=== PATIENT | male | born 1970 | race Caucasian/White ===

== ENCOUNTER → 2016-09-22 | Outpatient (CLI) | payer BC | LOC: SL 13:29 | PROVIDERS: ATTEND Family Medicine | DX: G47.33 Obstructive sleep apnea (adult) (pediatric) (principal); I10 Essential (primary) hypertension; E66.9 Obesity, unspecified; G47.00 Insomnia, unspecified; R53.81 Other malaise; R06.83 Snoring ==

== ENCOUNTER → 2016-10-20 | Outpatient (CLI) | payer BC | LOC: SL 15:04 | PROVIDERS: ATTEND Family Medicine | DX: G47.33 Obstructive sleep apnea (adult) (pediatric) (principal) ==

== ENCOUNTER → 2017-03-22 | Outpatient (CLI) | payer BC | END | disposition home or self-care (01) | LOC: GMAL 10:40 | PROVIDERS: ATTEND Family Medicine | DX: D51.3 Other dietary vitamin B12 deficiency anemia (principal); D50.8 Other iron deficiency anemias; R53.82 Chronic fatigue, unspecified; E55.9 Vitamin D deficiency, unspecified ==

== ENCOUNTER → 2017-06-23 | Outpatient (CLI) | payer BC | END | disposition home or self-care (01) | LOC: GMAL 09:42 | PROVIDERS: ATTEND Family Medicine | DX: D51.3 Other dietary vitamin B12 deficiency anemia (principal); D50.8 Other iron deficiency anemias; R53.82 Chronic fatigue, unspecified; E55.9 Vitamin D deficiency, unspecified ==

== ENCOUNTER → 2017-10-21 | Outpatient (CLI) | payer BC ==
--- NOTE | 2017-10-22 08:36 | MRI ---
EXAM DESCRIPTION: Shoulder,Right: Magnetic resonance imaging. CLINICAL HISTORY: SHOULDER PAIN. Right. COMPARISON: None. TECHNIQUE: Multiplanar, high-field MRI, multiple sequences, without contrast, right shoulder. FINDINGS: The involving almost entire thickness of the anterior insertion of the supraspinatus tendon. This is involving the critical zone. AP dimension of the tear is almost 1 cm. Intermediate signal in the remainder of the tendon insertion on the posterior aspect. Large subcortical cyst proximally 1 cm in diameter abutting the insertion tear in the anterior tuberosity. The remaining muscles and tendons of the rotator cuff are intact with no significant atrophy. Minimal edema in the subacromial-subdeltoid bursa. Normal marrow signal in the remainder of the humerus. Fluid anterior to the subscapularis tendon. Downsloping of the lateral acromion and type II curvature. Minimal effusion in the AC joint capsule. Minimal flattening of the coracoacromial arch. Coracoid ligaments are intact. No effusion in the glenohumeral joint. No subchondral lesions. Mid anterior location of the bicipital labral anchor with no fluid signal. Intermediate signal in the inferior glenoid labrum. Long head biceps tendon within the bicipital groove. Small cysts in the suprascapular notch. IMPRESSION: 1. Almost full-thickness rim rent tear of the anterior supraspinatus tendon insertion. Degenerative signal in the remainder of the tendon. Other rotator cuff tendons are intact. No muscle atrophy. Approximately 1 cm cyst subcortical anterior tuberosity abutting the supraspinatus tendon tear. Minimal edema in the subacromion subdeltoid bursa. Fluid collection anterior to the subscapularis musculotendinous junction. 2. Flattening of the coracoacromial arch and minimal hypertrophy in the AC joint. Morphology of the acromion may also be contributing to supraspinatus tendon impingement. 3. Intermediate signal indicating degeneration in the inferior glenoid labrum. No definite tear. If tear is suspected clinically, consider MR arthrography. Electronically signed by: Florentino Dang MD 10/22/2017 8:35 AM CDT
== END ==
LOC: MRI 09:24
PROVIDERS: ATTEND Family Medicine
DX: M75.101 Unspecified rotator cuff tear or rupture of right shoulder, not specified as traumatic (principal)

== ENCOUNTER → 2017-11-18 | Outpatient (CLI) | payer BC | LOC: GMAL 12:46 | PROVIDERS: ATTEND Family Medicine | DX: D51.3 Other dietary vitamin B12 deficiency anemia (principal); D50.8 Other iron deficiency anemias; R53.82 Chronic fatigue, unspecified; E55.9 Vitamin D deficiency, unspecified ==